=== PATIENT | male | born 1980 | race American Indian/Alaskan Native ===

== ENCOUNTER 2016-10-10 05:20 | Emergency (ER) | payer SELFPAY ==
[2016-10-10 05:27] VITALS: BP 156/98
--- NOTE | 2016-10-10 08:07 | Emergency Department Report ---
Suture/Staple Removal - [facility] Chief Complaint: Sore Throat Stated Complaint: SORE THROAT Time Seen by Provider: 10/10/16 07:51 ED Review of Systems ROS: Stated complaint: SORE THROAT Other details as noted in HPI ED Past Medical Hx - Past Medical History Previous Medical History?: Yes Hx Diabetes: Yes - Surgical History Past Surgical History?: Yes Additional Surgical History: Rt ankle sx - Social History Smoking Status: Current Every Day Smoker Substance Use Type: None Suture Removal Exam - Exam General: Vital signs noted. No distress. Alert and acting appropriately. Other Systems: All other systems reviewed and are unremarkable. ED Course Vital Signs 10/10/16 10/10/16 05:24 05:48 Temperature 98.2 F 98.2 F Pulse Rate 62 62 Respiratory 18 18 Rate Blood Pressure 156/98 156/98 O2 Sat by Pulse 97 97 Oximetry Critical care attestation.: If time is entered above; I have spent that time in minutes in the direct care of this critically ill patient, excluding procedure time. ED Disposition Condition: Stable Referrals: PRIMARY CARE [Primary Care Provider] - 3-5 Days
--- NOTE | 2016-10-10 08:13 | Emergency Department Report ---
HPI - General Chief Complaint: Sore Throat Time Seen by Provider: 10/10/16 07:51 - HPI HPI: Patient is a 35-year-old male who presents to ED complaining of throat pain 4 days. Patient describes pain as throbbing in nature, 8 out of 10 intensity, nonradiating, localized to his throat. Patient admits dry, nonproductive cough. Patient admits fever for the first 2 days but not at the moment. Patient denies nausea/vomiting/abdominal pain/shortness of breath/chest pain/ headache. ED Past Medical Hx - Past Medical History Previous Medical History?: Yes Hx Diabetes: Yes - Surgical History Past Surgical History?: Yes Additional Surgical History: Rt ankle sx - Social History Smoking Status: Current Every Day Smoker Substance Use Type: None - Medications Home Medications: Home Medications Medication Instructions Recorded Confirmed Last Taken Type Ascorbic Acid [Vitamin C] 500 mg PO BID #30 tablet 10/10/16 Unknown Rx Dextromethorphan HBr/B-Freddy [Sore 1 each PO TID #30 lozenge 10/10/16 Unknown Rx Throat & Cough Lozenge] guaiFENesin [Robitussin] 200 mg PO Q6HR #20 tablet 10/10/16 Unknown Rx ED Review of Systems ROS: Stated complaint: SORE THROAT Other details as noted in HPI Constitutional: denies: chills, fever Eyes: denies: eye pain, eye discharge, vision change ENT: throat pain. denies: ear pain Respiratory: cough. denies: shortness of breath, wheezing Cardiovascular: denies: chest pain, palpitations Endocrine: no symptoms reported Gastrointestinal: denies: abdominal pain, nausea, diarrhea Genitourinary: denies: urgency, dysuria Musculoskeletal: denies: back pain, joint swelling, arthralgia Skin: denies: rash, lesions Neurological: denies: headache, weakness, paresthesias Psychiatric: denies: anxiety, depression Hematological/Lymphatic: denies: easy bleeding, easy bruising Physical Exam - Physical Exam Vital Signs: Vital Signs 10/10/16 10/10/16 05:24 05:48 Temperature 98.2 F 98.2 F Pulse Rate 62 62 Respiratory 18 18 Rate Blood Pressure 156/98 156/98 O2 Sat by Pulse 97 97 Oximetry Physical Exam: GENERAL: Alert and oriented x3, no apparent distress, Normal Gait, atraumatic. HEAD: Head is normocephalic and a-traumatic. EYES: Extra ocular muscles are intact. Pupils are equal, round, and reactive to light and accommodation. EARS: symetrical, atraumatic, non tender, ear canal clear and moderate cerumen, tympanic membrance non inflamed. gross auditory nml bilaterally. NOSE: Nose symetrical, Nontender,Nares appeared normal. MOUTH:Mouth is well hydrated and without lesions. Tonsils nonerythematous , mildly swollen, Uvula midline, Tongue not elevated. Mucous membranes are moist. Posterior pharynx clear, no exudate or lesions. Patent airways. NECK: Supple. Non edematous, No lymphadenopathy or thyromegaly. LUNGS: Symetrical with respiration, No wheezing, no rales or crackles, CTAB. HEART: S1, S2 present, regular rate and rhythm without murmur, no rubs, no gallops. Non tender to palpation SKIN: Warm and dry, No lesions, No ulceration or induration present. ED Course Vital Signs 10/10/16 10/10/16 05:24 05:48 Temperature 98.2 F 98.2 F Pulse Rate 62 62 Respiratory 18 18 Rate Blood Pressure 156/98 156/98 O2 Sat by Pulse 97 97 Oximetry ED Medical Decision Making - Medical Decision Making 35-year-old male presented to pharyngitis ED course: Rapid strep negative Discussed this patient. Discussed the patient on vitamin C 500 mg twice a day, throat lozenges, increase fluids to 8-10 glasses per day discussed follow-up with primary care physician. Patient had uneventful ED stay prior signs are normal patient is in no acute distress. Condition is alert and oriented 3. Discussed with patient attends easy symptoms worsen otherwise follow-up with primary care Critical care attestation.: If time is entered above; I have spent that time in minutes in the direct care of this critically ill patient, excluding procedure time. ED Disposition Clinical Impression: Pharyngitis Qualifiers: Pharyngitis/tonsillitis etiology: unspecified etiology Qualified Code(s): J02.9 - Acute pharyngitis, unspecified Disposition: DC-01 TO HOME OR SELFCARE Is pt being admited?: No Does the pt Need Aspirin: No Condition: Stable Instructions: Pharyngitis (ED), Cold Symptoms (ED) Prescriptions: Ascorbic Acid [Vitamin C] 500 mg PO BID #30 tablet Dextromethorphan HBr/B-Freddy [Sore Throat & Cough Lozenge] 1 each PO TID #30 lozenge guaiFENesin [Robitussin] 200 mg PO Q6HR #20 tablet Referrals: PRIMARY CARE, [Primary Care Provider] - 3-5 Days Forms: Work/School Release Form(ED) Time of Disposition: 08:11
== END 2016-10-10 08:42 | disposition home or self-care (01) ==
LOC: ED 05:20
DX: J02.9 Acute pharyngitis, unspecified (principal); E11.9 Type 2 diabetes mellitus without complications; F17.200 Nicotine dependence, unspecified, uncomplicated
CPT/HCPCS: 87116; 87430; 99282